=== PATIENT | male | born 1990 | race Caucasian/White ===

== ENCOUNTER 2021-09-03 09:34 | Emergency (ER) | payer SELFPAY ==
[2021-09-03] MEDS ORDERED: ALBUTEROL 2.5 MG/3 ML NEBU IH ONE (10:01)
[2021-09-03] MEDS ORDERED: methylPREDNISolone Sod Succinate 125 MG/2 ML INJ IM ONE (10:20)
--- NOTE | 2021-09-03 11:41 | Emergency Department Report ---
Minor Respiratory - HPI Chief Complaint: Dyspnea/Respdistress Stated Complaint: ASTHMA Time Seen by Provider: 09/03/21 10:01 Duration: 2 Days Pain Location: Chest Severity: mild Minor Respiratory: Yes Able to Tolerate Fluids, No Rhinorrhea, No Sore Throat, No Ear Pain, No Cough, No Sick Contacts, No Hemoptysis, No Chest Pain, No Shortness of Breath, No Fever Other History: Patient is a 31-year-old male that comes to the emergency room with wheezing. He has acute on chronic asthma. He is out of his medications. He denies purulent sputum. He denies fever or chills. He denies chest pain. Patient is ambulatory, nontoxic [id number] on arrival to the ER. No hypotension, tachycardia or fever ED Review of Systems ROS: Stated complaint: ASTHMA Other details as noted in HPI Comment: All other systems reviewed and negative ED Past Medical Hx - Past Medical History Previous Medical History?: Yes Hx Asthma: Yes - Surgical History Past Surgical History?: No - Family History Family history: no significant - Social History Smoking Status: Never Smoker Substance Use Type: None - Medications Home Medications: Home Medications Medication Instructions Recorded Confirmed Last Taken Type ALBUTEROL NEB's [Proventil 0.083% 2.5 mg IH TID PRN #1 box 09/03/21 Unknown Rx NEBS] Albuterol Mdi (or & Nicu Only) 2 puff IH QID PRN #1 inhalation 09/03/21 Unknown Rx [ProAir HFA Inhaler] Cetirizine HCl [ZyrTEC] 10 mg PO DAILY #30 capsule 09/03/21 Unknown Rx Fluticasone [Flonase] 1 spray NS QDAY #1 bottle 09/03/21 Unknown Rx predniSONE [Deltasone] 20 mg PO DAILY #5 tablet 09/03/21 Unknown Rx Minor Respiratory Exam - Exam General: Vital signs noted. No distress. Alert and acting appropriately. HEENT: Yes Moist Mucous Membranes, No Pharyngeal Erythema, No Pharyngeal Exudates, No Rhinorrhea, No Conjuctival Injection, No Frontal Tenderness, No Maxillary Tenderness Ear: Neither TM Bulge, Neither TM Erythema, Neither EAC Pain, Neither EAC Discharge Neck: Yes Supple, No Adenopathy Lungs: Yes Good Air Exchange, Yes Wheezes, No Ronchi, No Stridor, No Cough, No Labored Respirations, No Retractions, No Use of Accessory Muscles, No Other Abnormal Lung Sounds Heart: Yes Regular, No Murmur Abdomen: Yes Normal Bowel Sounds, No Tenderness, No Peritoneal Signs Skin: No Rash, No Edema Neurologic: Alert and oriented, no deficits. Musculoskeletal: Unremarkable. ED Course Vital Signs 09/03/21 09:39 Temperature 98.4 F Pulse Rate 52 L Respiratory 22 Rate Blood Pressure 136/85 O2 Sat by Pulse 98 Oximetry ED Medical Decision Making - Medical Decision Making Vital Signs 09/03/21 09:39 Temperature 98.4 F Pulse Rate 52 L Respiratory 22 Rate Blood Pressure 136/85 O2 Sat by Pulse 98 Oximetry Patient given a DuoNeb and Methylpred. This relieved his wheezing. On discharge exam patient ambulatory, not ill nontoxic, 100% sat on room air after walking. Taking p.o. without difficulty Patient being discharged home with discharge plan of care including diet, activity, medications and follow-up - Differential Diagnosis Acute on chronic asthma Critical care attestation.: If time is entered above; I have spent that time in minutes in the direct care of this critically ill patient, excluding procedure time. ED Disposition Clinical Impression: Asthma with acute exacerbation Qualifiers: Asthma severity: mild Asthma persistence: intermittent Qualified Code(s): J45.21 - Mild intermittent asthma with (acute) exacerbation Disposition: 01 HOME / SELF CARE / HOMELESS Is pt being admited?: No Does the pt Need Aspirin: No Condition: Stable Instructions: Asthma, Adult Additional Instructions: Medications as ordered today Follow-up with PCP. Have given you referral below Prescriptions: predniSONE [Deltasone] 20 mg PO DAILY #5 tablet Fluticasone [Flonase] 1 spray NS QDAY #1 bottle Albuterol Mdi (or & Nicu Only) [ProAir HFA Inhaler] 2 puff IH QID PRN #1 inhalation PRN Reason: Shortness Of Breath ALBUTEROL NEB's [Proventil 0.083% NEBS] 2.5 mg IH TID PRN #1 box PRN Reason: Wheezing Cetirizine HCl [ZyrTEC] 10 mg PO DAILY #30 capsule Referrals: LASHAWN DUNCAN MD [Staff Physician] - 3-5 Days Time of Disposition: 11:40
[2021-09-03 11:53] VITALS: BP 124/69
== END 2021-09-03 13:43 | disposition home or self-care (01) ==
LOC: ED 09:34
DX: J45.901 Unspecified asthma with (acute) exacerbation (principal); Z79.899 Other long term (current) drug therapy
CPT/HCPCS: 94640; 96372; 99282; J2930